=== PATIENT | female | born 1975 | race Caucasian/White ===

== ENCOUNTER → 2017-04-06 | Outpatient (CLI) | payer OTHER ==
[2017-04-06 13:05] VITALS: BP 128/92; PULSE 72; RESP 16; TEMP 97.3
--- NOTE | 2017-04-06 13:24 | P.HPIM ---
History of Present Illness H&P Date: 04/06/17 Chief Complaint: low back pain This is a 41-year-old patient referred by Dr. Lundberg for chronic pain in low back with radiation to upper back and legs with numbness/tingling. Patient has been taking medications from primary care physician including [place] and Valium medications with some relief. Patient denies adverse drug effects from medications. Patient also denies new-onset weakness, bowel/bladder incontinence , or any other signs or symptoms of cauda equina syndrome. There are no signs of acute intoxication, and no indications of medication diversion or overuse. Patient notes that pain worsens significantly with standing and walking, and improves with heat and medication. Patient has used several types of medications for pain, including NSAIDS, OPIOIDS ([place], Percocet), TRAMADOL, and BENZODIAZEPINES (Valium). Patient HAS NOT had surgery. Patient HAS had injections previously by Dr. Anaya, which from description appear to be trigger point injections primarily. They were done every other week for nearly one year and the patient gained almost 100 lbs. Patient HAS NOT had physical therapy recently. In addition to above, 13-point review of systems is also negative for chest pain , shortness of breath, changes in vision, changes in hearing, new onset weakness , abdominal pain, diarrhea, extreme fatigue, malaise, fever, skin changes, homicidal or suicidal ideation, or bowel or bladder incontinence. Vital Signs: Reviewed in EMR Gen: WDWN, AAOx3, NAD HEENT: NCAT, EOMI, hearing grossly normal Pulm: resp unlabored Abd: soft, NT, ND Neck: supple, trachea midline ROM in flexion lumbar spine: reduced ROM in extension lumbar spine: reduced Lumbar paravertebral tenderness: + Facet loading: + bilateral SI joint tenderness: + bilateral, R > L Rob's test: + R >> L Straight leg raise: + bilateral at 10 degrees Neuro: CN II-XII grossly intact, muscle strength lower extremities PRESERVED Past Medical History Additional Past Medical History / Comment(s): "ARTHRITIS IN SPINE". FIBROMYALGIA. DDD. "5 BULGING DISKS". History of Any Multi-Drug Resistant Organisms: None Reported Past Surgical History: Section Additional Past Surgical History / Comment(s): BACK PAIN INJECTIONS PREVIOUSLY. Past Anesthesia/Blood Transfusion Reactions: No Reported Reaction Past Psychological History: Bipolar Smoking Status: Never smoker Past Alcohol Use History: None Reported Past Drug Use History: Marijuana Additional Drug Use History / Comment(s): MARIJUANA USED A LONG TIME AGO. - Past Family History Father Additional Family Medical History / Comment(s): ETOH. Mother Family Medical History: Cancer, Congestive Heart Failure (CHF), CVA/TIA, Diabetes Mellitus Additional Family Medical History / Comment(s): CERVICAL CANCER. Medications and Allergies Home Medications Medication Instructions Recorded Confirmed Type Cetirizine HCl [Zyrtec] 10 mg PO DAILY 04/06/17 04/06/17 History Diazepam [Valium] 5 mg PO HS PRN 04/06/17 04/06/17 History HYDROcodone/APAP 10-325MG [[place] 1 tab PO BID 04/06/17 04/06/17 History 10-325] Ibuprofen [Motrin] 1,600 mg PO TID PRN 04/06/17 04/06/17 History Allergies Allergy/AdvReac Type Severity Reaction Status Date / Time No Known Allergies Allergy Verified 04/06/17 12:31 Physical Exam Vitals: Intake and Output 04/05/17 04/06/17 04/06/17 22:59 06:59 14:59 Other: Weight 108.862 kg Patient Weight 04/07/17 06:59 Weight 108.862 kg Results Comments: MRI lumbar spine dated 09/03/2016 demonstrates a diffuse disc bulge minimally narrowing the bilateral neural foramina and impression of the ventral thecal sac at L2-L3. There is no significant spinal canal stenosis at this level. At the L4-L5 level there are mild facet degenerative changes and mild interforaminal disc bulging causing minimal bilateral inferior neural foraminal narrowing. There is no spinal canal stenosis. L5-S1 level is negative. Assessment and Plan (1) Lumbar spondylosis Status: Chronic (2) Neural foraminal stenosis of lumbar spine Status: Chronic (3) Chronic pain syndrome Status: Chronic Plan: 1. Explanation: Opioid and psychological risk scores were reviewed. Diagnoses , prognoses, and multiple treatment options including but not limited to physical therapy, interventional therapies, adjuvant medical therapies, narcotic medication therapies, and surgery were discussed with the patient and all questions were answered to the patient's satisfaction. 2. Opioid agreement: no opioids prescribed today 3. Counseling: The patient was counseled extensively on SMOKING CESSATION, BODY MASS INDEX, EXERCISE. Specifically, the patient was instructed regarding the importance of smoking cessation, weight control, and exercise in the context of both chronic pain and overall health. 4. Procedures: none for now, consider LESI in the future 5. Consultations: physical therapy 6. Investigations: hormone panel to eval steroid-induced endocrinopathy, as patient previously had repeated steroid injections every two weeks for almost one year 7. Medications: none 8. Disposition: f/u for re-eval in 6 weeks PQRS measures: 1-Patient's medications are documented in the chart. 2-Tobacco use is negative, counseling given 3-Patient has not had a pneumococcal vaccine. 4-Advanced care planning discussed, patient unable to give. 5-Opioid contract signed with the patient. 6-Pain positive, follow-up visit or procedure scheduled 7-Patient's blood pressure measured and documented, and patient will follow up with the primary care due to hypertension. 8-Patient's weight was measured, and body mass index ABOVE the normal limits, and counseling was done. Patient instructed to follow up with PCP. 9-Patient WAS NOT identified as an unhealthy alcohol user. Time with Patient: Greater than 30
== END | disposition home or self-care (01) ==
LOC: PNWHC3 12:00
PROVIDERS: ATTEND Anesthesiology
DX: M99.73 Connective tissue and disc stenosis of intervertebral foramina of lumbar region (principal); M47.816 Spondylosis without myelopathy or radiculopathy, lumbar region; G89.4 Chronic pain syndrome; Z79.899 Other long term (current) drug therapy
CPT/HCPCS: 99211

== ENCOUNTER 2018-06-17 12:27 | Observation (INO) | payer OTHER ==
[2018-06-17] MEDS ORDERED: FAMOTIDINE 20 MG/2 ML VIAL IV STA (13:17)
[2018-06-17] MEDS ORDERED: LIDOCAINE VISCOUS 2% 15 ML CUP MUCOUS MEM ONE (13:17)
[2018-06-17] MEDS ORDERED: ONDANSETRON 4 MG/2 ML VIAL IVP STA (13:18)
[2018-06-17] MEDS ORDERED: SUCRALFATE 1 GM TAB PO STA (13:19)
--- NOTE | 2018-06-17 13:21 | ED ---
Abdominal Pain HPI - General Chief Complaint: Abdominal Pain Stated Complaint: Abdominal pain Time Seen by Provider: 06/17/18 12:56 Source: patient Mode of arrival: ambulatory Limitations: no limitations - History of Present Illness Initial Comments: Patient is a 42-year-old female presents with a chief complaint of epigastric pain. Patient states that this isn't going on for several months however worse today. She states that her pain feels like a "vise pier runner" and somewhat radiates to her back and shoulder blades. She cannot identify any alleviating factors, she states that this pain is usually worse when she eats, saying that it happens approximately half hour to an hour after. She denies any history of heart troubles or lung trouble. - Related Data Home Medications Medication Instructions Recorded Confirmed Butalb/APAP/Caff 50-325-40Mg 1 tab PO DAILY 06/17/18 06/17/18 [Fioricet 50-325-40] Fluticasone Nasal [place] [Flonase 1 spray EA NOSTRIL DAILY 06/17/18 06/17/18 Nasal [place]] Metoprolol Succinate [Toprol XL] 50 mg PO DAILY 06/17/18 06/17/18 Vilazodone HCl [Viibryd] 10 mg PO DAILY 06/17/18 06/17/18 Allergies Allergy/AdvReac Type Severity Reaction Status Date / Time cyclobenzaprine AdvReac Vomiting Verified 06/17/18 14:50 [From Flexeril] naproxen [From Naprosyn] AdvReac increased Verified 06/17/18 14:50 bleeding Review of Systems ROS Statement: Those systems with pertinent positive or pertinent negative responses have been documented in the HPI. ROS Other: All systems not noted in ROS Statement are negative. Gastrointestinal: Reports: abdominal pain, nausea, vomiting Past Medical History Additional Past Medical History / Comment(s): ARTHRITIS IN SPINE, FIBROMYALGIA, DDD, 5 BULGING DISKS History of Any Multi-Drug Resistant Organisms: MRSA Date of last positivie culture/infection: 2010 MDRO Source:: back Past Surgical History: Section Additional Past Surgical History / Comment(s): BACK PAIN INJECTIONS PREVIOUSLY. Past Anesthesia/Blood Transfusion Reactions: No Reported Reaction Past Psychological History: Bipolar Smoking Status: Never smoker Past Alcohol Use History: None Reported Past Drug Use History: Marijuana - Past Family History Father Additional Family Medical History / Comment(s): ETOH. Mother Family Medical History: Cancer, Congestive Heart Failure (CHF), CVA/TIA, Diabetes Mellitus Additional Family Medical History / Comment(s): CERVICAL CANCER. General Exam Limitations: no limitations General appearance: alert, in no apparent distress Head exam: Present: atraumatic, normocephalic Eye exam: Present: normal appearance ENT exam: Present: normal exam, mucous membranes moist Neck exam: Present: normal inspection Respiratory exam: Present: normal lung sounds bilaterally. Absent: respiratory distress, wheezes Cardiovascular Exam: Present: regular rate, normal rhythm GI/Abdominal exam: Present: soft, tenderness (Patient has tenderness in the epigastric and right upper quadrant regions. There is a positive De Dios sign.) . Absent: distended, pulsatile mass Rectal exam: Present: deferred Extremities exam: Present: normal inspection Back exam: Present: normal inspection. Absent: CVA tenderness (R), CVA tenderness (L) Neurological exam: Present: alert, oriented X3 Psychiatric exam: Present: normal affect, normal mood Skin exam: Present: warm, dry, intact Course Vital Signs 06/17/18 06/17/18 12:39 15:43 Temperature 97.9 F 97.3 F L Pulse Rate 63 72 Respiratory 16 18 Rate Blood Pressure 141/68 144/63 O2 Sat by Pulse 97 98 Oximetry Medical Decision Making - Medical Decision Making Presents with a chief complaint of epigastric pain. On initial evaluation, vitals are stable, patient is in no acute distress. Concern for peptic ulcer disease versus gallbladder pathology, less likely aortic pathology given stable vital signs, lack of chest pain. Pulses are equal and bilateral upper extremities and lower extremities. Patient to be evaluated with basic labs including troponin, liver profile, ultrasound of the abdomen, an EKG. Patient given a GI cocktail for symptomatic relief. EKG performed at 1:46 PM shows sinus bradycardia with a rate of 55 bpm. EKG is otherwise unremarkable. 4:01 PM Lab evaluation is significant for elevated AST and ALT, bilirubin 0 with a normal limits. Left ear otherwise unremarkable. Ultrasound shows a distended gallbladder, full of stones. There did not appear to be any signs of acute cholecystitis. Case discussed with Dr. Brown who recommended medical admission with consult to GI. At reevaluation, patient now feeling better after GI cocktail and Toradol. Patient is agreeable with admission and the care plan. Case discussed with Dr. Cintron who accepts with consult to GI. He is recommending a computed tomography scan of the abdomen and pelvis with contrast to rule out ascending cholangitis. - Lab Data Result diagrams: 06/17/18 13:41 06/17/18 13:41 Lab Results 06/17/18 06/17/18 06/17/18 Range/Units 13:41 13:41 13:41 WBC 9.7 (3.8-10.6) k/uL RBC 4.67 (3.80-5.40) m/uL Hgb 13.8 (11.4-16.0) gm/dL Hct 41.1 (34.0-46.0) % MCV 87.9 (80.0-100.0) fL MCH 29.5 (25.0-35.0) pg MCHC 33.5 (31.0-37.0) g/dL RDW 14.6 (11.5-15.5) % Plt Count 294 (150-450) k/uL Neutrophils % 72 % Lymphocytes % 19 % Monocytes % 7 % Eosinophils % 1 % Basophils % 0 % Neutrophils # 7.0 (1.3-7.7) k/uL Lymphocytes # 1.8 (1.0-4.8) k/uL Monocytes # 0.6 (0-1.0) k/uL Eosinophils # 0.1 (0-0.7) k/uL Basophils # 0.0 (0-0.2) k/uL Sodium 144 (137-145) mmol/L Potassium 4.3 (3.5-5.1) mmol/L Chloride 108 H (98-107) mmol/L Carbon Dioxide 27 (22-30) mmol/L Anion Gap 9 mmol/L BUN 14 (7-17) mg/dL Creatinine 0.74 (0.52-1.04) mg/dL Est GFR (CKD-EPI)AfAm >90 (>60 ml/min/1.73 sqM) Est GFR (CKD-EPI)NonAf >90 (>60 ml/min/1.73 sqM) Glucose 109 H (74-99) mg/dL Calcium 9.0 (8.4-10.2) mg/dL Total Bilirubin 1.2 (0.2-1.3) mg/dL AST 377 H (14-36) U/L ALT 196 H (9-52) U/L Alkaline Phosphatase 122 (38-126) U/L Troponin I <0.012 (0.000-0.034) ng/mL Total Protein 6.8 (6.3-8.2) g/dL Albumin 4.0 (3.5-5.0) g/dL Lipase 70 (23-300) U/L Disposition Clinical Impression: Transaminitis, Cholelithiasis, Abdominal pain Disposition: ADMITTED IP TO THIS [facility] Condition: Good Is patient prescribed a controlled substance at d/c from ED?: No Referrals: Bryson Lundberg DO [Primary Care Provider] - 1-2 days Decision to Admit Reason: Admit from EC - Out of Hospital Transfer - Req. Specs Out of Hospital Transfer - Requested Specifics: Other Non-Acute
[2018-06-17] MEDS: MAG HYDROX/AL HYDROX/SIMETH 30 ML CUP PO PRN ×2 (13:52→13:53)
[2018-06-17 13:55] LABS: Basophils % (A) 0 %; Eosinophils # (A) 0.1 k/uL (0-0.7); Eosinophils % (A) 1 %; HCT 41.1 % (34.0-46.0); HGB 13.8 gm/dL (11.4-16.0); Lymphocytes # (A) 1.8 k/uL (1.0-4.8); Lymphocytes % (A) 19 %; MCH 29.5 pg (25.0-35.0); MCHC 33.5 g/dL (31.0-37.0); MCV 87.9 fL (80.0-100.0); Mean Platelet Volume 9.4; Monocytes # (A) 0.6 k/uL (0-1.0); Monocytes % (A) 7 %; Neutrophils % (A) 72 %; Platelet Count 294 k/uL (150-450); RBC 4.67 m/uL (3.80-5.40); RDW 14.6 % (11.5-15.5); WBC 9.7 k/uL (3.8-10.6)
[2018-06-17 14:06] LABS: ALT 196 U/L (9-52); AST 377 U/L (14-36); Alkaline Phosphatase 122 U/L (38-126); Anion Gap 9 mmol/L; Blood Urea Nitrogen 14 mg/dL (7-17); Carbon Dioxide 27 mmol/L (22-30); Chloride 108 mmol/L (98-107); Glucose 109 mg/dL (74-99); Lipase 70 U/L (23-300); Potassium 4.3 mmol/L (3.5-5.1); Sodium 144 mmol/L (137-145); Total Bilirubin 1.2 mg/dL (0.2-1.3); Total Protein 6.8 g/dL (6.3-8.2)
[2018-06-17] MEDS ORDERED: KETOROLAC 30 MG/ML 1 ML VIAL IVP STA (14:29)
--- NOTE | 2018-06-17 14:57 | US ---
EXAMINATION TYPE: US abdomen complete DATE OF EXAM: 06/17/2018 COMPARISON: NONE CLINICAL HISTORY: Pain. epigastric pain EXAM MEASUREMENTS: Liver Length: 16.1 cm Gallbladder Wall: 0.2 cm CBD: 0.4 cm Spleen: 11.2 cm Right Kidney: 11.3 x 4.4 x 5.1 cm Left Kidney: 12.0 x 4.6 x 4.5 cm Exam somewhat limited as it was performed portably in ER. Pancreas: Tail obscured by overlying bowel gas Liver: wnl Gallbladder: full of stones, no lumen seen Evidence for sonographic De Dios's sign: Yes CBD: wnl Spleen: wnl Right Kidney: No hydronephrosis or masses seen Left Kidney: No hydronephrosis or masses seen, limited by overlying bowel gas Upper IVC: wnl Abd Aorta: wnl IMPRESSION: 1. Cholelithiasis with no evidence of gallbladder wall thickening.
[2018-06-17] MEDS ORDERED: NALOXONE 0.4 MG/ML 1 ML VIAL IV PRN ×2 (16:03→18:12)
[2018-06-17] MEDS: MORPHINE SULFATE 4 MG/ML SYRINGE IV PRN ×2 (16:41→23:14)
[2018-06-17] MEDS: SODIUM CHLORIDE 0.9% 1,000 ML IV SCH (16:41)
--- NOTE | 2018-06-17 17:26 | CT ---
EXAMINATION TYPE: CT abdomen pelvis w con DATE OF EXAM: 06/17/2018 COMPARISON: None HISTORY: RUQ to epigastric pain CT DLP: 1656 mGycm Automated exposure control for dose reduction was used. TECHNIQUE: Helical acquisition of images was performed from the lung bases through the pelvis. CONTRAST: Performed without Oral Contrast and with IV Contrast, patient injected with 100 mL of Isovue 300. FINDINGS: Lung bases are clear of consolidation. There is no pleural effusion. Heart size is normal. There is n o pericardial effusion. There are small hiatal hernia. Liver spleen pancreas appear normal. There are multiple calcified large gallstones. Bile ducts are no t dilated. There is no adrenal mass. Kidneys show satisfactory contrast opacification. There is no hydronephrosi s. There is 1 cm cyst anterior left kidney. There is no retroperitoneal adenopathy. There is no mesen teric adenopathy or edema. There is no sign of free air. There is no inguinal hernia or adenopathy. T he lumbar vertebra have normal alignment. There is degenerative disc space narrowing at L to 3 with s purring. I see no bony destructive process. There is retroverted uterus. There is no free fluid in th e pelvis. Abdominal soft tissues are unremarkable. IMPRESSION: SMALL HIATAL HERNIA. NUMEROUS GALLSTONES. NO SIGN OF ACUTE ABDOMEN AND PELVIS.
--- NOTE | 2018-06-17 18:11 | P.HPIM ---
History of Present Illness H&P Date: 06/17/18 Chief Complaint: Abdominal pain 42 yo F with PMH of fibromyalgia and DJD of cervical spine presented to the ED for epigastric and RUQ abdominal pain. The pain is intermittnet, on-going for several years, occurs only 3-4 x / year, 06/22, brought on by food of any kind, crampy/squeezing in nature, radiating to the back, lasting 20-30 minutes at a time, and resolves after subsequent NBNB vomiting. The patient notes that over the past 1 week, she has already experienced 3 episodes, which is unusual for her and the episodes are a lot more severe. The latest episode started this morning at 9 am and didn't resolve until 4-5 hours later, and was associated w/ multiple episodes of vomiting. She otherwise denied fever, chills, diarrhea, chest pain, SOB, headache, visual disturbances, recent travel, or sick contacts. Patient underwent Abd CT and US, showing numerous gall-stones w/ no evidence of cholecystitis. Review of Systems Pertinent positives and negatives as discussed in HPI, a complete review of systems was performed and all other systems are negative. Past Medical History Additional Past Medical History / Comment(s): ARTHRITIS IN SPINE, FIBROMYALGIA, DDD, 5 BULGING DISKS History of Any Multi-Drug Resistant Organisms: MRSA Date of last positivie culture/infection: 2010 MDRO Source:: back Past Surgical History: Section Additional Past Surgical History / Comment(s): BACK PAIN INJECTIONS PREVIOUSLY. Past Anesthesia/Blood Transfusion Reactions: No Reported Reaction Past Psychological History: Bipolar Smoking Status: Never smoker Past Alcohol Use History: None Reported Past Drug Use History: Marijuana - Past Family History Father Additional Family Medical History / Comment(s): ETOH. Mother Family Medical History: Cancer, Congestive Heart Failure (CHF), CVA/TIA, Diabetes Mellitus Additional Family Medical History / Comment(s): CERVICAL CANCER. Medications and Allergies Home Medications Medication Instructions Recorded Confirmed Type Butalb/APAP/Caff 50-325-40Mg 1 tab PO DAILY 06/17/18 06/17/18 History [Fioricet 50-325-40] Fluticasone Nasal [place] [Flonase 1 spray EA NOSTRIL DAILY 06/17/18 06/17/18 History Nasal [place]] Metoprolol Succinate [Toprol XL] 50 mg PO DAILY 06/17/18 06/17/18 History Vilazodone HCl [Viibryd] 10 mg PO DAILY 06/17/18 06/17/18 History Allergies Allergy/AdvReac Type Severity Reaction Status Date / Time cyclobenzaprine AdvReac Vomiting Verified 06/17/18 14:50 [From Flexeril] naproxen [From Naprosyn] AdvReac increased Verified 06/17/18 14:50 bleeding Physical Exam Vitals: Vital Signs Temp Pulse Pulse Resp BP BP Pulse Ox 06/17/18 17:35 97.6 F 53 L 16 102/57 96 06/17/18 15:43 97.3 F L 72 18 144/63 98 06/17/18 12:39 97.9 F 63 16 141/68 97 Intake and Output 06/17/18 06/17/18 06/17/18 06:59 14:59 22:59 Other: Weight 114.305 kg General: obese F, [non toxic], [no distress], [appears at stated age], [normal weight] Derm: [no unusual rashes/lesions] [no unusual ecchymoses], [warm], [dry] Head: [atraumatic], [normocephalic], [symmetric] Eyes: [EOMI], [no lid lag], [anicteric sclera], [pupils equal round reactive to light] ENT: [Nose and ears atraumatic], [no thrush], [no pharyngeal erythema] Neck: [No thyromegaly], [no cervical lymphadenopathy], [trachea midline], [ supple] Mouth: [no lip lesion], [mucus membranes moist] Cardiovascular: [S1S2 reg], [no murmur], [positive posterior tibial pulse bilateral], [no edema], [capillary refill less than 2 seconds] Lungs: [CTA bilateral], [no rhonchi, no rales] , [no accessory muscle use] Abdominal: [soft], [mild epigastric and RUQ tenderness on palpation], [no guarding], [no appreciable organomegaly], [normal bowel sounds] Ext: [no gross muscle atrophy], [muscle strength 5 out of 5 in all 4 extremities grossly], [no contractures], Neuro: [ CN II-XI grossly intact], [light touch intact all 4 extremities], [ finger to nose within normal limits], Psych: [Alert], [oriented], [appropriate affect] Results CBC & Chem 7: 06/17/18 13:41 06/17/18 13:41 Labs: Abnormal Lab Results - Last 24 Hours (Table) 06/17/18 Range/Units 13:41 Chloride 108 H (98-107) mmol/L Glucose 109 H (74-99) mg/dL AST 377 H (14-36) U/L ALT 196 H (9-52) U/L Assessment and Plan Plan: Biliary colic w/ deranged LFTs - Check Lipase, Amylase - Consult Surgery for consideration of cholecystectomy - Monitor LFTs - NPO for now Hyperglycemia - Check A1C HTN - Unsure why patient is on Toprol - Will resume for now DVT//GI prophylaxis - Heparin subq - No indication for GI prophylaxis The patient is admitted with an anticipated stay less than 2 midnight stay for evaluation of cholelithiasis CODE STATUS:Full-code Discussed with: Patient Anticipated discharge date: 06/19/[address]: Home A total of 60 minutes was spent on the care of this complex patient more than 50 % of the time was spent in counseling and care coordination.
[2018-06-17] MEDS: ONDANSETRON 4 MG/2 ML VIAL IVP PRN (23:13)
[2018-06-18] MEDS: HEPARIN SODIUM,PORCINE 5,000 UNIT/ML 1 ML VIAL SQ SCH ×3 (00:01→16:52)
[2018-06-18] MEDS: KETOROLAC 30 MG/ML 1 ML VIAL IVP PRN ×4 (00:33→20:56)
[2018-06-18] MEDS: SODIUM CHLORIDE 0.9% 1,000 ML IV SCH ×2 (06:12→16:55)
[2018-06-18] MEDS: ONDANSETRON 4 MG/2 ML VIAL IVP PRN ×3 (07:45→21:45)
[2018-06-18] MEDS: MORPHINE SULFATE 4 MG/ML SYRINGE IV PRN (07:55)
--- NOTE | 2018-06-18 09:03 | CONS ---
CONSULTATION DATE OF CONSULTATION: 06/18/2018 REQUESTING PHYSICIAN: Dr. Lundberg. REASON FOR CONSULTATION: Abdominal pain and elevated LFTs. HISTORY OF PRESENT ILLNESS: The patient is a 42-year-old white female came to the emergency room complaining of severe epigastric pain that started yesterday morning at 9:00 am. The pain continued to progressively get worse through the day, very intense, associated with some nausea, vomiting, and came into the emergency room last night and subsequently admitted to the hospital for further evaluation. In the ER, she did have ultrasound of the gallbladder as well as CT of the abdomen done that showed evidence of gallstones but no biliary ductal dilation. The reason Gastroenterology is consulted is because of elevated serum transaminases at the time of admission to the hospital. The patient stated that she had similar episodes over the last 1 year. She had at least 3 or 4 episodes. Each time the pain lasts for an hour or 2 and then usually resolves. Did not seek any medical attention. Presently, her pain is much better. In fact almost normal. This morning no nausea, no vomiting. No fever, no chills. PAST MEDICAL HISTORY: Significant for degenerative joint disease, fibromyalgia, hypertension. PAST SURGICAL HISTORY: . MEDICATIONS: At home include Flonase, Fioricet, Toprol, Viibryd. ALLERGIES: TO FLEXERIL AND NAPROXEN. SOCIAL HISTORY: Nonsmoker. No alcohol use. FAMILY HISTORY: Father alcohol abuse. Mother had congestive heart failure, diabetes mellitus, and cervical cancer. REVIEW OF SYSTEMS: Cardiopulmonary: No chest pain, shortness of breath. Genitourinary: No dysuria or hematuria. Musculoskeletal unremarkable. Skin unremarkable. Endocrine unremarkable. Psychiatric unremarkable. Neurology unremarkable. ENT vision unremarkable. Constitutional: No recent weight loss. No fever, chills, night sweats. PHYSICAL EXAMINATION: She appears comfortable. No apparent distress. VITAL SIGNS: Stable. Blood pressure 102/57, pulse rate 53, temperature 97.6. HEENT examination unremarkable. Sclerae anicteric. Oral cavity no lesions. Neck no jugular venous distention or lymph node enlargement. Chest was clear to auscultation. HEART: Regular rate and rhythm. ABDOMEN: Soft. Mild tenderness in the epigastric area. Bowel sounds are positive. No organomegaly. Obese. Extremities: No pedal edema. Skin no rashes. Neuro: She is alert and oriented x3. No focal deficits. LABS: WBC 9.7, hemoglobin 13.8, platelets are normal. Basic metabolic panel is within normal limits. AST 377, ALT 196, T bilirubin and alkaline phosphatase are within normal limits. Labs from this morning are still pending. Ultrasound of the abdomen showed multiple gallstones but no evidence of biliary ductal dilation. IMPRESSION: This is a lady who presents with a severe episode of epigastric pain that started yesterday morning at 9:00 am continued through the day and had 2 similar episodes in the last 1 year each lasting for 2-3 hours and resolved. At the time she came to the emergency room, serum transaminases are elevated at 377 and 196 respectively, but normal bilirubin and alkaline phosphatase. Ultrasound of the gallbladder as well as CT showed evidence of gallstones but no biliary ductal dilation. Given the elevation of serum transaminases, possibility of choledocholithiasis needs to be considered. RECOMMENDATIONS: Repeat liver enzymes today if they are improving, we can continue to watch him closely. However, if they are getting worse, we may have to consider an ERCP. I agree with surgical consultation for laparoscopic cholecystectomy. Keep her n.p.o. for now until labs are available. Thank you for this consultation. MMODL / IJN: [id number] /
[2018-06-18 09:28] LABS: Basophils % (A) 1 %; Eosinophils # (A) 0.1 k/uL (0-0.7); Eosinophils % (A) 2 %; HCT 35.3 % (34.0-46.0); HGB 12.4 gm/dL (11.4-16.0); Lymphocytes # (A) 1.4 k/uL (1.0-4.8); Lymphocytes % (A) 34 %; MCH 30.5 pg (25.0-35.0); MCHC 35.2 g/dL (31.0-37.0); MCV 86.7 fL (80.0-100.0); Monocytes # (A) 0.3 k/uL (0-1.0); Monocytes % (A) 7 %; Neutrophils # (A) 2.3 k/uL (1.3-7.7); Neutrophils % (A) 55 %; Platelet Count 210 k/uL (150-450); RBC 4.07 m/uL (3.80-5.40); RDW 12.4 % (11.5-15.5); WBC 4.2 k/uL (3.8-10.6)
[2018-06-18 09:53] LABS: ALT 225 U/L (9-52); AST 150 U/L (14-36); Albumin 3.2 g/dL (3.5-5.0); Alkaline Phosphatase 106 U/L (38-126); Anion Gap 6 mmol/L; Blood Urea Nitrogen 14 mg/dL (7-17); Calcium 8.3 mg/dL (8.4-10.2); Carbon Dioxide 26 mmol/L (22-30); Chloride 110 mmol/L (98-107); Glucose 85 mg/dL (74-99); Potassium 4.3 mmol/L (3.5-5.1); Sodium 142 mmol/L (137-145); Total Bilirubin 0.5 mg/dL (0.2-1.3); Total Protein 5.6 g/dL (6.3-8.2)
--- NOTE | 2018-06-18 10:45 | P.PN ---
Subjective Progress Note Date: 06/18/18 42 yo F with PMH of HTN presented to the ED w/ c/o intermittent post-pradial RUQ and epigastric abdominal pain w/ nausea and vomiting, w/ radiation to back. The pain had been occuring intermittently 3-4 times a year but had recently increased and severity and frequency. In the ED, the patient underwent a right upper quadrant ultrasound and a CT abdomen which showed numerous gallstones with no biliary ductal rotation and no signs of cholecystitis. Patient was noted to have elevated transaminases with AST 377 and AST 199 and a normal alk phos and bilirubin levels. General Surgery and GI were consulted and patient was admitted for further monitoring. The patient seen and examined at the bedside. She was laying in bed comfortably. She continues to be NPO though had another episode of pain overnight which lasted several minutes. She denied further episodes of nausea or vomiting. She further denied any fever, chills, chest pain, shortness of breath, dysuria, diarrhea, constipation. Objective - Vital Signs Vital signs: Vital Signs Temp 97.7 F 06/18/18 07:10 Pulse 69 06/18/18 07:10 Resp 16 06/18/18 07:10 BP 113/54 06/18/18 07:10 Pulse Ox 96 06/18/18 07:10 Intake & Output 06/17/18 06/18/18 06/18/18 18:59 06:59 18:59 Weight 114.305 kg Other: # Voids 1 - Exam General: Obese, Non-toxic, in no acute distress HEENT: NC/AT, anicteric sclerae, moist conjunctiva, no lid-lag, PERRLA, oropharynx clear, no erythema, exudates Cardiovascular: S1/S2 wnl, no murmurs, rubs, or gallops Lungs: Clear to auscultation, normal respiratory effort, no accessory muscle use Abdominal: Soft, mild tenderness in the epigastric region, non-distended, no guarding, rebound, or rigidity, normoactive bowel sounds Skin: Warm, dry Extremities: No edema or contractures Psychiatric: Alert and oriented to person, place and time, appropriate affect, Intact judgment Neuro: CN II-XII grossly intact, no focal motor deficits - Labs CBC & Chem 7: 06/18/18 09:03 06/18/18 09:03 Labs: Abnormal Lab Results - Last 24 Hours (Table) 06/17/18 06/18/18 Range/Units 13:41 09:03 Chloride 108 H 110 H (98-107) mmol/L Glucose 109 H (74-99) mg/dL Calcium 8.3 L (8.4-10.2) mg/dL AST 377 H 150 H (14-36) U/L ALT 196 H 225 H (9-52) U/L Total Protein 5.6 L (6.3-8.2) g/dL Albumin 3.2 L (3.5-5.0) g/dL Assessment and Plan Plan: Biliary colic w/ deranged LFTs, improving - Lipase wnl - GI recs appreciated. Awaiting Surgery consult. - Monitor LFTs - NPO for now - Toradol prn for pain Hyperglycemia - Awaiting A1C HTN - Unsure why patient is on Toprol - Will resume for now DVT//GI prophylaxis - Heparin subq - No indication for GI prophylaxis The patient is admitted with an anticipated stay less than 2 midnight stay for evaluation of cholelithiasis CODE STATUS:Full-code Discussed with: Patient Anticipated discharge date: 06/19/[address]: Home A total of 60 minutes was spent on the care of this complex patient more than 50 % of the time was spent in counseling and care coordination.
--- NOTE | 2018-06-18 12:48 | P.GSCN ---
History of Present Illness Consult date: 06/18/18 History of present illness: CHIEF COMPLAINT: Cholecystitis HISTORY OF PRESENT ILLNESS: The patient is a 42-year-old female who comes in with symptomatic gallstones including acute epigastric and right upper quadrant abdominal pain. She presents also with moderately elevated liver enzymes secondary to intermittent choledocholithiasis. She reports several year history of intermittent abdominal pain. Diagnostic studies consistent with multiple gallstones. Patient initially presented right upper quadrant abdominal pain which is not improved since admission. She reports that pain after meals are related to high fat foods. PAST MEDICAL HISTORY: Please see list PAST SURGICAL HISTORY: Please see list MEDICATIONS: Please see list ALLERGIES: Denies. SOCIAL HISTORY: No illicit drug use or recent tobacco use FAMILY HISTORY: Pertinent for gallbladder disease REVIEW OF ORGAN SYSTEMS: CONSTITUTIONAL: No reports of fevers or chills. HEENT: Denies any troubles with the vision or hearing. ENDOCRINE: No reports of hypothyroidism. No diabetes. RESPIRATORY: No recent pneumonias. CARDIOVASCULAR: Denies chest pain or palpitations GI: No blood in stools or constipation. MUSCULOSKELETAL: Has occasional joint pain including back pain. NEURO: No seizure disorders or headaches. No recent stroke. PSYCH: Has bipolar disorder including fibromyalgia GENITOURINARY: No active blood in urine. No urinary hesitancy. HEMATOLOGIC: No personal or family history of DVTs or pulmonary emboli. SKIN: No skin cancer. PHYSICAL EXAM: GENERAL: Well-developed pleasant in no acute distress. HEENT: No scleral icterus. Extraocular movements grossly intact. Moist buccal mucosa. NECK: Supple without lymphadenopathy. CHEST: Unlabored respirations. Equal bilateral excursions. CARDIOVASCULAR: Regular rate regular rhythm rhythm. Distal 2+ pulses. ABDOMEN: Soft, nondistended. Tender along the epigastrium and right upper quadrant. MUSCULOSKELETAL: No clubbing, cyanosis, or edema. NEURO: Cranial nerves II to XII within normal limits. No focal or lateralizing signs. PSYCH: Alert and oriented to person, place and time. SKIN: Well-perfused good skin turgor. ASSESSMENT: 1. Epigastric and right upper quadrant abdominal pain 2. Chronic cholecystitis 3. Symptomatic gallstones. 4. Choledocholithiasis 5. Morbid obesity, BMI 44.6 PLAN: 1. Will need a robotic cholecystectomy possible open. Benefits and risks were described. 2. Heparin for DVT prophylaxis 5000 units. 3. Antibiotic prophylaxis. 4. Recommend low-fat diet. Past Medical History Past Medical History: GERD/Reflux, Hypertension Additional Past Medical History / Comment(s): ARTHRITIS IN SPINE, FIBROMYALGIA, DDD, 5 BULGING DISKS History of Any Multi-Drug Resistant Organisms: MRSA Year Discovered:: 2010 MDRO Source:: back Past Surgical History: Section Additional Past Surgical History / Comment(s): BACK PAIN INJECTIONS PREVIOUSLY. Past Anesthesia/Blood Transfusion Reactions: No Reported Reaction Past Psychological History: Bipolar Smoking Status: Never smoker Past Alcohol Use History: None Reported Past Drug Use History: Marijuana - Past Family History Father Additional Family Medical History / Comment(s): ETOH. Mother Family Medical History: Cancer, Congestive Heart Failure (CHF), CVA/TIA, Diabetes Mellitus Additional Family Medical History / Comment(s): CERVICAL CANCER. Medications and Allergies Home Medications Medication Instructions Recorded Confirmed Type Butalb/APAP/Caff 50-325-40Mg 1 tab PO DAILY 06/17/18 06/17/18 History [Fioricet 50-325-40] Fluticasone Nasal Dobbins [Flonase 1 spray EA NOSTRIL DAILY 06/17/18 06/17/18 History Nasal Dobbins] Metoprolol Succinate [Toprol XL] 50 mg PO DAILY 06/17/18 06/17/18 History Vilazodone HCl [Viibryd] 10 mg PO DAILY 06/17/18 06/17/18 History Allergies Allergy/AdvReac Type Severity Reaction Status Date / Time cyclobenzaprine AdvReac Vomiting Verified 06/17/18 14:50 [From Flexeril] naproxen [From Naprosyn] AdvReac increased Verified 06/17/18 14:50 bleeding Surgical - Exam Vital Signs Temp Pulse Resp BP Pulse Ox 97.9 F 63 16 141/68 97 06/17/18 12:39 06/17/18 12:39 06/17/18 12:39 06/17/18 12:39 06/17/18 12:39 Results - Labs 06/18/18 09:03 06/18/18 09:03 Abnormal Lab Results - Last 24 Hours (Table) 06/17/18 06/18/18 Range/Units 13:41 09:03 Chloride 108 H 110 H (98-107) mmol/L Glucose 109 H (74-99) mg/dL Calcium 8.3 L (8.4-10.2) mg/dL AST 377 H 150 H (14-36) U/L ALT 196 H 225 H (9-52) U/L Total Protein 5.6 L (6.3-8.2) g/dL Albumin 3.2 L (3.5-5.0) g/dL Diabetes panel 06/17/18 06/18/18 Range/Units 13:41 09:03 Sodium 144 142 (137-145) mmol/L Potassium 4.3 4.3 (3.5-5.1) mmol/L Chloride 108 H 110 H (98-107) mmol/L Carbon Dioxide 27 26 (22-30) mmol/L BUN 14 14 (7-17) mg/dL Creatinine 0.74 0.71 (0.52-1.04) mg/dL Glucose 109 H 85 (74-99) mg/dL Calcium 9.0 8.3 L (8.4-10.2) mg/dL AST 377 H 150 H (14-36) U/L ALT 196 H 225 H (9-52) U/L Alkaline Phosphatase 122 106 (38-126) U/L Total Protein 6.8 5.6 L (6.3-8.2) g/dL Albumin 4.0 3.2 L (3.5-5.0) g/dL Calcium panel 06/17/18 06/18/18 Range/Units 13:41 09:03 Calcium 9.0 8.3 L (8.4-10.2) mg/dL Albumin 4.0 3.2 L (3.5-5.0) g/dL Pituitary panel 06/17/18 06/18/18 Range/Units 13:41 09:03 Sodium 144 142 (137-145) mmol/L Potassium 4.3 4.3 (3.5-5.1) mmol/L Chloride 108 H 110 H (98-107) mmol/L Carbon Dioxide 27 26 (22-30) mmol/L BUN 14 14 (7-17) mg/dL Creatinine 0.74 0.71 (0.52-1.04) mg/dL Glucose 109 H 85 (74-99) mg/dL Calcium 9.0 8.3 L (8.4-10.2) mg/dL Adrenal panel 06/17/18 06/18/18 Range/Units 13:41 09:03 Sodium 144 142 (137-145) mmol/L Potassium 4.3 4.3 (3.5-5.1) mmol/L Chloride 108 H 110 H (98-107) mmol/L Carbon Dioxide 27 26 (22-30) mmol/L BUN 14 14 (7-17) mg/dL Creatinine 0.74 0.71 (0.52-1.04) mg/dL Glucose 109 H 85 (74-99) mg/dL Calcium 9.0 8.3 L (8.4-10.2) mg/dL Total Bilirubin 1.2 0.5 (0.2-1.3) mg/dL AST 377 H 150 H (14-36) U/L ALT 196 H 225 H (9-52) U/L Alkaline Phosphatase 122 106 (38-126) U/L Total Protein 6.8 5.6 L (6.3-8.2) g/dL Albumin 4.0 3.2 L (3.5-5.0) g/dL - Imaging US - abdomen: report reviewed, image reviewed (Moderate gallstones identified) EKG: report reviewed, image reviewed (Otherwise normal sinus rhythm) Assessment and Plan (1) Choledocholithiasis with acute cholecystitis with obstruction Current Visit: Yes Status: Acute Code(s): K80.43 - CALCULUS OF BILE DUCT W ACUTE CHOLECYSTITIS WITH OBSTRUCTION SNOMED Code(s): 87939937 (2) Morbid obesity due to excess calories Current Visit: Yes Status: Acute Code(s): E66.01 - MORBID (SEVERE) OBESITY DUE TO EXCESS CALORIES SNOMED Code(s): 010036798 (3) Body mass index (BMI) of 40.1 to 44.9 in adult Current Visit: Yes Status: Acute Code(s): Z68.41 - BODY MASS INDEX (BMI) 40.0-44.9, ADULT SNOMED Code(s): 071638783 (4) Fibromyalgia Current Visit: Yes Status: Acute Code(s): M79.7 - FIBROMYALGIA SNOMED Code (s): 448704649 (5) High transaminase levels Current Visit: Yes Status: Acute Code(s): R74.0 - NONSPEC ELEV OF LEVELS OF TRANSAMNS & LACTIC ACID DEHYDRGNSE SNOMED Code(s): 547227877 (6) Chronic pain syndrome Current Visit: No Status: Chronic Code(s): G89.4 - CHRONIC PAIN SYNDROME SNOMED Code(s): 903183833
[2018-06-18] MEDS: MAG HYDROX/AL HYDROX/SIMETH 30 ML CUP PO PRN (16:52)
[2018-06-18 17:49] LABS: Hemoglobin A1C 5.1 % (4.0-6.0)
[2018-06-18] MEDS: MORPHINE SULFATE 4 MG/ML SYRINGE IVP PRN (21:45)
[2018-06-19] MEDS: HEPARIN SODIUM,PORCINE 5,000 UNIT/ML 1 ML VIAL SQ SCH ×4 (01:46→23:23)
[2018-06-19] MEDS: ONDANSETRON 4 MG/2 ML VIAL IVP PRN ×3 (03:28→19:54)
[2018-06-19] MEDS: MORPHINE SULFATE 4 MG/ML SYRINGE IVP PRN ×4 (06:16→19:54)
[2018-06-19] MEDS: SODIUM CHLORIDE 0.9% 1,000 ML IV SCH ×3 (08:52→22:07)
--- NOTE | 2018-06-19 09:10 | PN ---
PROGRESS NOTE Patient is a 42-year-old young lady came to the hospital with epigastric and right upper quadrant abdominal pain of 2 days duration. She was noted to have elevated serum transaminases at the time of admission hospital but normal bilirubin and alkaline phosphatase. Her ultrasound as well as CT scan showed gallstones with no biliary ductal dilation. She was seen in consultation yesterday. This morning she still has some pain. She was evaluated by Dr. Swenson and scheduled for laparoscopic cholecystectomy this morning. She denies any other symptoms. PHYSICAL EXAMINATION: Appears comfortable, no apparent distress. Vital signs are stable. Blood pressure is 136/73, pulse rate 61, temperature 97.8. HEENT examination unremarkable. Conjunctivae pink. Sclerae anicteric. Oral cavity no lesions. NECK: No jugular venous distention or lymph node enlargement. Chest was clear to auscultation. HEART: Regular rate and rhythm. Abdomen is soft. Bowel sounds are positive. No organomegaly. EXTREMITIES: No pedal edema. SKIN: No rashes. NEUROLOGIC: Alert and oriented x3. No focal deficits. LABS: From today: WBC 4.2, hemoglobin 12.4, platelets are normal. AST is down to 150, ALT is down to 225, T bilirubin and alkaline phosphatase are normal. IMPRESSION: This is a lady who presents to the hospital with epigastric right upper quadrant abdominal pain. An ultrasound of the gallbladder showed gallstones and noted to have mild elevation of serum transaminases, which most likely related to possible CBD stone that has spontaneously passed improving as evidenced by improving serum transaminases. Clinically, she looks better. RECOMMENDATIONS: 1. No indication for ERCP. 2. Proceed with laparoscopic cholecystectomy, which is scheduled for this morning. Thank you for this consultation. MMODL / IJN: [id number] /
[2018-06-19 09:56] LABS: HCG,Qualitative Serum Not Detected
[2018-06-19 09:57] LABS: HCT 36.2 % (34.0-46.0); HGB 12.6 gm/dL (11.4-16.0); MCH 30.2 pg (25.0-35.0); MCHC 34.7 g/dL (31.0-37.0); Mean Platelet Volume 7.1; Platelet Count 222 k/uL (150-450); RBC 4.16 m/uL (3.80-5.40); RDW 12.5 % (11.5-15.5); WBC 5.6 k/uL (3.8-10.6)
[2018-06-19] MEDS ORDERED: INDOCYANINE GREEN 25 MG VIAL IV ONE (10:00)
[2018-06-19 10:01] LABS: ALT 142 U/L (9-52); AST 48 U/L (14-36); Albumin 3.3 g/dL (3.5-5.0); Alkaline Phosphatase 97 U/L (38-126); Anion Gap 7 mmol/L; Blood Urea Nitrogen 10 mg/dL (7-17); Calcium 8.6 mg/dL (8.4-10.2); Carbon Dioxide 23 mmol/L (22-30); Chloride 111 mmol/L (98-107); Glucose 86 mg/dL (74-99); Potassium 4.2 mmol/L (3.5-5.1); Sodium 141 mmol/L (137-145); Total Bilirubin 0.3 mg/dL (0.2-1.3); Total Protein 5.9 g/dL (6.3-8.2)
[2018-06-19] MEDS ORDERED: fentaNYL (PF) 50 MCG/ML 2 ML AMP ONE (10:44)
[2018-06-19] MEDS ORDERED: LIDOCAINE 1% INJ 10MG/ML (20 ML MDV) ONE (10:44)
[2018-06-19] MEDS ORDERED: ROCURONIUM BROMIDE 10 MG/ML 10 ML VIAL IV ONE (10:44)
[2018-06-19] MEDS ORDERED: MIDAZOLAM 2 MG/2 ML VIAL ONE (10:44)
[2018-06-19] MEDS ORDERED: NEOSTIGMINE 1 MG/ML 10 ML VIAL ONE (10:44)
[2018-06-19] MEDS ORDERED: PROPOFOL 10 MG/ML 20 ML VIAL IV ONE (10:44)
[2018-06-19] MEDS ORDERED: KETOROLAC 30 MG/ML 1 ML VIAL ONE (10:44)
[2018-06-19] MEDS ORDERED: GLYCOPYRROLATE 0.2 MG/ML 2 ML VIAL ONE (10:44)
[2018-06-19] MEDS ORDERED: HYDROmorphone (PF) 1 MG/ML ONE (10:44)
[2018-06-19] MEDS ORDERED: SUCCINYLCHOLINE CHLORIDE VIAL 200 MG/10 ML VIAL IV ONE (10:44)
--- NOTE | 2018-06-19 10:46 | P.HPADDEND ---
H&P Addendum H&P Addendum Date: 06/19/18 Patient reports recurrent right upper quadrant abdominal pain. LFTs are improving though elevated consistent with choledocholithiasis. We'll proceed with robotic cholecystectomy given the patient's body habitus. Potential discharge within 24 hours or postprocedure with immediate follow-up in the office.
[2018-06-19] MEDS ORDERED: BUPIVACAIN-EPI 0.25%-1:200,000 30 ML VIAL SQ ONE (11:07)
[2018-06-19] MEDS ORDERED: IV FLUID CONTINUATION 800 ML IV ONE (11:08)
--- NOTE | 2018-06-19 11:48 | P.OP ---
Date of Procedure: 06/19/18 Description of Procedure: SURGEON: MANA COLLINS MD PREOPERATIVE DIAGNOSES: 1. Symptomatic gallstones 2. Chronic cholecystitis 3. Choledocholithiasis with cystic duct obstruction 4. Morbid obesity due to excess calories, BMI 44.6 5. Fibromyalgia 6. Osteoarthritis 7. Hypertensive heart disease POSTOPERATIVE DIAGNOSES: 1. Symptomatic gallstones 2. Chronic cholecystitis 3. Choledocholithiasis with cystic duct obstruction 4. Morbid obesity due to excess calories, BMI 44.6 5. Fibromyalgia 6. Osteoarthritis 7. Hypertensive heart disease 8. Hepatomegaly 9. Lower abdominal peritoneal adhesions OPERATION: Robotic-assisted da Lyn Xi laparoscopic cholecystectomy, multiport with FIREFLY ESTIMATED BLOOD LOSS: 5 mL. SPECIMENS REMOVED: Gallbladder. COMPLICATIONS: None. OPERATIVE FINDINGS: 1. Chronic cholecystitis 2. Multiple gallstones INDICATIONS: The patient is a 42-year-old female who presents with choledocholithiasis with cholelcystitis. Surgical intervention with a laparoscopic cholecystectomy was described at length including injury to the biliary tree, bleeding, infection, need for further surgery. Informed consent was obtained. Robotic assisted laparoscopic approach was described. Benefits and risks of the procedure including but not limited to bleeding, infection, injury to the biliary tree was described. Informed consent was obtained. DESCRIPTION OF PROCEDURE: Patient was brought to the operating room, placed in supine position. After general induction, the abdomen had been prepped and draped in standard sterile fashion. The robotic da Lyn XI system was primed. After a timeout protocol was performed, the patient had been prepped and draped in standard sterile fashion. The patient was injected with indocyanine green. A 5 mm 0 degrees laparoscopic trocar entry was performed along the left upper quadrant. The abdomen insufflated to 15 mmHg pressure which she tolerated well. Diagnostic laparoscopy demonstrated no injury to bowel viscera or mesentery. The liver surface was unremarkable for hepatomegaly adding complexity to the case. Next, two 8 mm robotic ports were placed along the right upper abdomen. The camera 8-mm port was maintained along the epigastrium. Another 8 mm port was placed along the left upper abdominal wall after exchanging the 5 mm port. Please note that the ports were placed at least 10 to 15 cm away from the target anatomy of the gallbladder. The robot was docked along the left lateral abdomen. The patient was repositioned in reverse Trendelenburg position. Using a grasper for arm 3, a grasper for arm 4, including hook cautery for arm 1 , the robotic system was docked and primed as described. Instruments were interchanged by the resident care assistant including hook cautery, Bovie cautery and clip appliers. I had sat at the console. Adhesions were identified along the infundibulum of the gallbladder and addressed using hook cautery. The gallbladder fundus was retracted over the dome of the liver. Initial attention was brought to the infundibulum which was gently retracted in the inferior lateral approach. Using a grasper, the cystic duct including the cystic artery was carefully skeletonized. FIREFLY was used to identify the cystic artery and cystic structures. Large PLASTIC clips were used throughout the entire case. Using a clip farm hand 2 clips were placed proximally, and 1 clip was placed distally along the cystic duct and then cauterized with the cautery. Again care was taken to avoid any injury to the biliary tree as the common bile duct was clearly visualized during this portion of dissection. Next, the cystic artery was similarly clipped and cauterized. Electro-Bovie cautery was used to remove the gallbladder from the hepatic fossa. Hemostasis was checked and found to be adequate. The robot was undocked. I re-scrubbed into the case. Using a 10 mm Endo Catch bag via the left upper quadrant incision, the specimen was removed from the abdominal cavity. All pneumoperitoneum instruments were evacuated from the abdominal cavity. The incisions were reapproximated using 4-0 Monocryl in an interrupted subcuticular fashion. Fascial defects were less than 8 mm in size. Please note along the trocar sites, local anesthetic was placed as a field block prior to insertion of all instruments. Liquid glue was applied to the skin. At the end of the procedure needle, sponge, and instrument count had been verified correct by the surgical specialist. The patient was transferred to postanesthesia care unit in stable condition. Intraoperative films were shared with the patient's family who were very pleased with the level of care. Console time 16 minutes
[2018-06-19] MEDS ORDERED: LACTATED RINGERS 1,000 ML IV ONE (11:52)
[2018-06-19] MEDS ORDERED: HYDROcodone/APAP 5-325MG 1 EACH TAB PO PRN (12:01)
[2018-06-19] MEDS: HYDROmorphone 1 MG/ML 1 ML SYRINGE IVP ONE ×2 (12:15→12:22)
[2018-06-19] MEDS ORDERED: PROMETHAZINE INJ 25 MG/ML 1 ML VIAL IVPB ONE (12:23)
[2018-06-19] MEDS ORDERED: ONDANSETRON 4 MG/2 ML VIAL IVP STA (13:37)
--- NOTE | 2018-06-19 13:42 | P.PN ---
Progress Note - Text Progress Note Date: 06/19/18 Patient seen and evaluated. She has post-op nausea following surgery. She is cleared from a surgical standpoint for discharge once clinically stable.
[2018-06-19] MEDS: ceFAZolin IN SWFI 2 GM/20 ML SYRINGE IVP SCH ×2 (15:57→23:23)
[2018-06-19] MEDS: KETOROLAC 30 MG/ML 1 ML VIAL IVP PRN ×2 (15:57→20:48)
--- NOTE | 2018-06-19 16:15 | P.PN ---
Subjective Progress Note Date: 06/19/18 42 yo F with PMH of HTN presented to the ED w/ c/o intermittent post-pradial RUQ and epigastric abdominal pain w/ nausea and vomiting, w/ radiation to back. The pain had been occuring intermittently 3-4 times a year but had recently increased and severity and frequency. In the ED, the patient underwent a right upper quadrant ultrasound and a CT abdomen which showed numerous gallstones with no biliary ductal rotation and no signs of cholecystitis. Patient was noted to have elevated transaminases with AST 377 and AST 199 and a normal alk phos and bilirubin levels. General Surgery and GI were consulted and patient was admitted for further monitoring. The patient was evaluated by GI and by General Surgery. She was recommended to undergo laproscopic cholecystectomy which was performed uneventfully on 06/19/18 The patient seen and examined at the bedside. She was laying in bed comfortably , sleeping. She c/o post-op nausea with single episode of emesis and also endorsed abdominal pain at incision sites but otherwise denied any active complaints. She denied chest pain, SOB, fever, chills, cough, or dysuria. Objective - Vital Signs Vital signs: Vital Signs Temp 97.9 F 06/19/18 15:00 Pulse 63 06/19/18 15:00 Resp 16 06/19/18 15:00 BP 143/75 06/19/18 15:00 Pulse Ox 92 L 06/19/18 15:00 Intake & Output 06/18/18 06/19/18 06/19/18 18:59 06:59 18:59 Intake Total 500 1750 Output Total 5 Balance 500 1745 Weight 114.305 kg Intake: IV 1300 Intake, IV Titration 50 Amount ceFAZolin 3 gm In Sodium 50 Chloride 0.9% 50 ml @ 100 mls/hr IVPB ONCE ONE Rx# :[id number] Oral 500 400 Output: Estimated Blood Loss 5 Other: # Voids 2 1 3 - Exam General: Obese, Non-toxic, in no acute distress HEENT: NC/AT, anicteric sclerae, moist conjunctiva, no lid-lag, PERRLA, oropharynx clear, no erythema, exudates Cardiovascular: S1/S2 wnl, no murmurs, rubs, or gallops Lungs: Clear to auscultation, normal respiratory effort, no accessory muscle use Abdominal: Soft, 4 3-4 cm incisions at lower abdomen, clean, non-distended, no guarding, rebound, or rigidity Skin: Warm, dry Extremities: No edema or contractures Psychiatric: Alert and oriented to person, place and time, appropriate affect, Intact judgment Neuro: CN II-XII grossly intact, no focal motor deficits - Labs CBC & Chem 7: 06/19/18 09:29 06/19/18 09:29 Labs: Abnormal Lab Results - Last 24 Hours (Table) 06/19/18 Range/Units 09:29 Chloride 111 H (98-107) mmol/L AST 48 H (14-36) U/L ALT 142 H (9-52) U/L Total Protein 5.9 L (6.3-8.2) g/dL Albumin 3.3 L (3.5-5.0) g/dL Assessment and Plan Plan: Biliary colic w/ deranged LFTs, s/p laproscopic cholecystectomy -C/w Zofran prn with Jasper 5 and Morphine for pain -Will keep inpatient for tonight due to significant pain and nausea Hyperglycemia - A1C 5.1. Likely stress induced HTN - Unsure why patient is on Toprol - Will resume for now DVT//GI prophylaxis - Heparin subq - No indication for GI prophylaxis The patient is admitted with an anticipated stay less than 2 midnight stay for evaluation of cholelithiasis CODE STATUS:Full-code Discussed with: Patient Anticipated discharge date: 06/20/[address]: Home A total of 60 minutes was spent on the care of this complex patient more than 50 % of the time was spent in counseling and care coordination.
[2018-06-20] MEDS: MORPHINE SULFATE 4 MG/ML SYRINGE IVP PRN ×2 (00:07→06:18)
[2018-06-20 01:14] VITALS: RESP 20
[2018-06-20] MEDS: ONDANSETRON 4 MG/2 ML VIAL IVP PRN ×2 (03:13→08:44)
[2018-06-20] MEDS: KETOROLAC 30 MG/ML 1 ML VIAL IVP PRN ×2 (03:13→08:44)
[2018-06-20 06:16] VITALS: BP 125/78; PULSE 56; TEMP 98.7
[2018-06-20] MEDS: HEPARIN SODIUM,PORCINE 5,000 UNIT/ML 1 ML VIAL SQ SCH (08:39)
[2018-06-20] MEDS ORDERED: METOPROLOL SUCCINATE (ER) 50 MG TAB.ER.24H PO SCH (09:00)
[2018-06-20] MEDS ORDERED: VILAZODONE HCL 10 MG PO SCH (09:00)
--- NOTE | 2018-06-20 11:18 | P.DS ---
Providers Date of admission: 06/17/18 16:33 Expected date of discharge: 06/20/18 Attending physician: Ganesh Reece MD Consults: 06/17/18 16:04 Consult Physician Urgent Consulting Provider: Sydnie Peters Consult Reason/Comments: transaminitis, cholelithiasis Do you want consulting provider notified?: Yes 06/17/18 18:15 Consult Physician Urgent Consulting Provider: Maribel Swenson Consult Reason/Comments: Biliary colic Do you want consulting provider notified?: Yes Primary care physician: [facility] Course: 42 yo F with PMH of HTN presented to the ED w/ c/o intermittent post-pradial RUQ and epigastric abdominal pain w/ nausea and vomiting, w/ radiation to back. The pain had been occuring intermittently 3-4 times a year but had recently increased and severity and frequency. In the ED, the patient underwent a right upper quadrant ultrasound and a CT abdomen which showed numerous gallstones with no biliary ductal rotation and no signs of cholecystitis. Patient was noted to have elevated transaminases with AST 377 and AST 199 and a normal alk phos and bilirubin levels. General Surgery and GI were consulted and patient was admitted for further monitoring. She was recommended to undergo laproscopic cholecystectomy for suspected chronic cholecystitis which was performed uneventfully on 06/19/18. Post-op, the patient had nausea and vomiting and was unable to tolerate any food and her pain medications had to be adjusted due to severe pain. Her symptoms however improved, and she is presently stable, and ready for discharge to home. Physical Examination General: Obese, Non-toxic, in no acute distress HEENT: NC/AT, anicteric sclerae, moist conjunctiva, no lid-lag, PERRLA, oropharynx clear, no erythema, exudates Cardiovascular: S1/S2 wnl, no murmurs, rubs, or gallops Lungs: Clear to auscultation, normal respiratory effort, no accessory muscle use Abdominal: Soft, 4 3-4 cm incisions at lower abdomen, clean, non-distended, no guarding, rebound, or rigidity Skin: Warm, dry Extremities: No edema or contractures Psychiatric: Alert and oriented to person, place and time, appropriate affect, Intact judgment Neuro: CN II-XII grossly intact, no focal motor deficits Discharge diagnosis: Chronic cholecystitis, Choledocholithiasis, Symptomatic gallstones, Morbid obesity, Fibromyalgia, Hypertension, Hyperglycemia without diagnoses of DM A total of 60 minutes of time were spent preparing this complex discharge summary. Procedures: Robotic-assisted da Lyn laparoscopic cholecystectomy Patient Condition at Discharge: Good Plan - Discharge Summary Discharge Rx Participant: Yes New Discharge Prescriptions: New HYDROcodone/APAP 5-325MG [Pawling 5-325] 1 tab PO Q4HR PRN 3 Days #18 tab PRN Reason: Pain Continue Vilazodone HCl [Viibryd] 10 mg PO DAILY Metoprolol Succinate [Toprol XL] 50 mg PO DAILY Butalb/APAP/Caff 50-325-40Mg [Fioricet 50-325-40] 1 tab PO DAILY Fluticasone Nasal Roby [Flonase Nasal Roby] 1 spray EA NOSTRIL DAILY Discharge Medication List Butalb/APAP/Caff 50-325-40Mg [Fioricet 50-325-40] 1 tab PO DAILY 06/17/18 [ History] Fluticasone Nasal Roby [Flonase Nasal Roby] 1 spray EA NOSTRIL DAILY 06/17/18 [History] Metoprolol Succinate [Toprol XL] 50 mg PO DAILY 06/17/18 [History] Vilazodone HCl [Viibryd] 10 mg PO DAILY 06/17/18 [History] HYDROcodone/APAP 5-325MG [Pawling 5-325] 1 tab PO Q4HR PRN 3 Days #18 tab [Rx] Follow up Appointment(s)/Referral(s): Maribel Swenson MD [STAFF PHYSICIAN] - 06/21/18 Bryson Lundberg DO [Primary Care Provider] - 1-2 days Patient Instructions/Handouts: Low Fat Diet (DC), Laparoscopic Cholecystectomy (DC) Activity/Diet/Wound Care/Special Instructions: May shower. No bath tub soaks. Low-fat diet advised. No lifting 4 pounds 1 week. Discharge Disposition: HOME SELF-CARE
[2018-06-20] MEDS: SODIUM CHLORIDE 0.9% 1,000 ML IV SCH (11:36)
== END 2018-06-20 13:32 | disposition home or self-care (01) ==
LOC: EC 12:27 → 4MS4W 16:33
PROVIDERS: ADMIT Internal Medicine; ATTEND Internal Medicine
DX: K80.67 Calculus of gallbladder and bile duct with acute and chronic cholecystitis with obstruction (principal); E66.01 Morbid (severe) obesity due to excess calories; Z68.41 Body mass index [BMI] 40.0-44.9, adult; M79.7 Fibromyalgia; R73.9 Hyperglycemia, unspecified; F31.9 Bipolar disorder, unspecified; I11.9 Hypertensive heart disease without heart failure; M46.90 Unspecified inflammatory spondylopathy, site unspecified; M47.9 Spondylosis, unspecified; G89.4 Chronic pain syndrome; R16.0 Hepatomegaly, not elsewhere classified; Z79.899 Other long term (current) drug therapy; Z79.51 Long term (current) use of inhaled steroids; Z88.8 Allergy status to other drugs, medicaments and biological substances; Z86.14 Personal history of Methicillin resistant Staphylococcus aureus infection; Z80.49 Family history of malignant neoplasm of other genital organs; Z82.49 Family history of ischemic heart disease and other diseases of the circulatory system; Z82.3 Family history of stroke; Z83.3 Family history of diabetes mellitus; Z81.1 Family history of alcohol abuse and dependence; K21.9 Gastro-esophageal reflux disease without esophagitis
CPT/HCPCS: 47562; 96375; S2900; 36415; 74177; 76700; 80053; 83036; 83690; 83735; 84484; 84703; 85025; 85027; 88304; 93005; 96361; 96365; 96376; 99285

== ENCOUNTER → 2020-03-13 | Outpatient (CLI) | payer OTHER ==
--- NOTE | 2020-03-13 16:30 | XR ---
Abdomen HISTORY: Z 87.11 Frontal view the abdomen on 2 images, correlation CT scan 06/17/2018 Lung bases are clear. There is no evident bowel obstruction or pneumoperitoneum. No pathologic calcif ication. Bone mineralization is normal. There are phleboliths within the pelvis. IMPRESSION: No acute abnormality
--- NOTE | 2020-03-13 18:21 | CT ---
EXAMINATION TYPE: CT abdomen pelvis w con DATE OF EXAM: 03/13/2020 COMPARISON: None 06/17/2018 HISTORY: Uterine ablation 2 days ago, abdominal pain and distention since. CT DLP: 1789.8 mGycm Automated exposure control for dose reduction was used. CONTRAST: Performed with IV Contrast, patient injected with 100 mL of Isovue M300. There is also oral contrast. Lung bases are clear. There is no pleural effusion. There is small hiatal hernia. Heart size is jesse l. Stomach has normal size. Liver and spleen appear intact. Bile ducts are not dilated. Gallbladder is a bsent. There is no adrenal mass. Kidneys show satisfactory contrast opacification. There is no hydronephrosi s. Delayed images show normal renal excretion. Ureters are not dilated. There is no retroperitoneal a denopathy. There is 1 cm anterior cortical cyst lower pole left kidney. Unchanged. There is no mesenteric edema. There is no ascites or free air. There is no bowel obstruction. There i s no sign of thickened appendix. Uterus is bulky with hypodensity consistent with edema. There is enl argement of the endometrial cavity up to 17 mm. This is consistent with the uterine ablation surgery. The lumbar vertebra have normal alignment. There is disc space narrowing at L2-3 with scarring and va cuum disc. There is no compression fracture. The bony pelvis is intact. IMPRESSION: Uterine edema consistent with recent surgery.
== END | disposition home or self-care (01) ==
LOC: RADCTMAIN 15:58
PROVIDERS: ATTEND Family Medicine
DX: R10.84 Generalized abdominal pain (principal); Z87.11 Personal history of peptic ulcer disease
CPT/HCPCS: 74018; 74177; Q9967 ×2

== ENCOUNTER → 2021-01-07 | Outpatient (CLI) | payer OTHER ==
--- NOTE | 2021-01-07 12:39 | XR ---
EXAMINATION TYPE: XR chest 2V DATE OF EXAM: 01/07/2021 COMPARISON: NONE HISTORY: COVID 19 and sob. TECHNIQUE: Frontal and lateral views of the chest are obtained. FINDINGS: There are new multifocal and confluent opacities throughout the mid to lower lungs left gr eater than right. The cardiac silhouette size is stable and within normal limits. The osseous stru ctures are intact. IMPRESSION: New multifocal and confluent opacities mid to lower lungs left greater than right consist ent with covid-19 infection.
[2021-01-07 12:46] LABS: ALT 17 U/L (4-34); AST 19 U/L (14-36); African American GFR (CKD) >90 (>60 ml/min/1.73 sqM); Albumin 3.4 g/dL (3.5-5.0); Albumin/Globulin Ratio 1.4; Alkaline Phosphatase 83 U/L (38-126); Anion Gap 5 mmol/L; Blood Urea Nitrogen 13 mg/dL (7-17); C Reactive Protein 2.2 mg/dL (<1.0); Calcium 8.7 mg/dL (8.4-10.2); Carbon Dioxide 26 mmol/L (22-30); Chloride 106 mmol/L (98-107); Globulin 2.5 g/dL; Glucose 103 mg/dL (74-99); LDH 470 U/L (313-618); Non-African American GFR(CKD) >90 (>60 ml/min/1.73 sqM); Sodium 137 mmol/L (137-145); Total Bilirubin 0.3 mg/dL (0.2-1.3); Total Protein 5.9 g/dL (6.3-8.2)
[2021-01-07 18:27] LABS: HCT 36.9 % (37.2-46.3); HGB 12.1 g/dL (12.0-15.0); MCH 28.6 pg (27.0-32.0); MCHC 32.8 g/dL (32.0-37.0); MCV 87.2 fL (80.0-97.0); Platelet Count 240 X 10*3/uL (140-440); RBC 4.23 X 10*6/uL (4.10-5.20); WBC 7.09 X 10*3/uL (4.50-10.00)
[2021-01-07 18:45] LABS: Ferritin 73.5 ng/mL (10.0-291.0)
== END | disposition home or self-care (01) ==
LOC: LABWHC1 11:35
PROVIDERS: ATTEND Family Medicine
DX: U07.1 COVID-19 (principal)
CPT/HCPCS: 36415; 71046; 80053; 82728; 83615; 84484; 85027; 85379; 86140

== ENCOUNTER → 2021-02-05 | Outpatient (CLI) | payer OTHER | END | disposition home or self-care (01) | LOC: LABWHC1 15:39 | PROVIDERS: ATTEND Internal Medicine | DX: R06.02 Shortness of breath (principal); R06.00 Dyspnea, unspecified; Z86.16 Personal history of COVID-19 | CPT/HCPCS: 36415; 85379 ==